=== PATIENT | male | born 1945 | race Caucasian/White ===

== ENCOUNTER → 2020-11-25 | Outpatient (CLI) | payer MEDICARE, OTHER ==
[~2020-11-25] MED LIST: ADVAIR 500-501 EACH INH; DYAZIDE 37.5/251 EA PO; IPRAT-ALBUT 0.5-3 ML INH; LEVAQUIN750 MG PO; MEDROL4 MG PO; PROAIR HFA8.5 GM INH; VOLTAREN EC 5050 MG PO; ZESTRIL30 MG PO; ZOCOR40 MG PO; ZYLOPRIM 100 M100 MG PO
== END ==
LOC: NM 08:10
DX: C34.2 Malignant neoplasm of middle lobe, bronchus or lung (principal); I26.99 Other pulmonary embolism without acute cor pulmonale; E86.0 Dehydration; R60.0 Localized edema; R94.8 Abnormal results of function studies of other organs and systems
CPT/HCPCS: 78306; A9503

== ENCOUNTER → 2020-11-30 | Outpatient (CLI) | payer MEDICARE, OTHER | LOC: CT 14:35 | DX: C34.2 Malignant neoplasm of middle lobe, bronchus or lung (principal); I26.99 Other pulmonary embolism without acute cor pulmonale; E86.0 Dehydration; R60.0 Localized edema; J47.9 Bronchiectasis, uncomplicated | CPT/HCPCS: 71260; Q9965 ==

== ENCOUNTER → 2020-12-21 | Outpatient (CLI) | payer MEDICARE, OTHER | LOC: CT 14:31 | DX: C34.2 Malignant neoplasm of middle lobe, bronchus or lung (principal); I26.99 Other pulmonary embolism without acute cor pulmonale; E86.0 Dehydration; R60.0 Localized edema; M89.9 Disorder of bone, unspecified; G35 Multiple sclerosis | CPT/HCPCS: 36415; 73701; Q9967 ==

== ENCOUNTER → 2021-01-06 | Outpatient (CLI) | payer MEDICARE, OTHER | LOC: MRI 15:13 | PROVIDERS: Family Medicine | DX: R73.9 Hyperglycemia, unspecified (principal); E78.5 Hyperlipidemia, unspecified; I10 Essential (primary) hypertension; C34.2 Malignant neoplasm of middle lobe, bronchus or lung; I26.99 Other pulmonary embolism without acute cor pulmonale; E86.0 Dehydration; R60.0 Localized edema; S83.241A Other tear of medial meniscus, current injury, right knee, initial encounter | CPT/HCPCS: 36415; 73723; 80053; 80061; A9577 ==

== ENCOUNTER → 2021-03-25 | Outpatient (CLI) | payer MEDICARE, OTHER | LOC: CT 14:30 | DX: C34.2 Malignant neoplasm of middle lobe, bronchus or lung (principal); C79.51 Secondary malignant neoplasm of bone; I26.99 Other pulmonary embolism without acute cor pulmonale; E86.0 Dehydration; R60.0 Localized edema | CPT/HCPCS: 71260; Q9967 ==

== ENCOUNTER → 2021-04-15 | Outpatient (CLI) | payer MEDICARE, OTHER | LOC: RT 14:37 | DX: J20.9 Acute bronchitis, unspecified (principal); J42 Unspecified chronic bronchitis; C34.2 Malignant neoplasm of middle lobe, bronchus or lung; Z90.2 Acquired absence of lung [part of] | CPT/HCPCS: 36600; 82803 ==

== ENCOUNTER → 2021-05-26 | Outpatient (CLI) | payer MEDICARE, OTHER ==
[2021-05-26 15:38] LABS: BUN/CREATININE RATIO 11 (0-10)
== END ==
LOC: LAB 14:44
PROVIDERS: Family Medicine
DX: R73.9 Hyperglycemia, unspecified (principal); E78.5 Hyperlipidemia, unspecified; I10 Essential (primary) hypertension; R94.4 Abnormal results of kidney function studies; M10.9 Gout, unspecified
CPT/HCPCS: 36415; 80053; 80061; 83036; 84550

== ENCOUNTER → 2021-07-01 | Outpatient (CLI) | payer MEDICARE, OTHER | LOC: CT 14:21 | DX: C34.2 Malignant neoplasm of middle lobe, bronchus or lung (principal); I26.99 Other pulmonary embolism without acute cor pulmonale; E86.0 Dehydration; R60.0 Localized edema; J47.9 Bronchiectasis, uncomplicated; R91.8 Other nonspecific abnormal finding of lung field | CPT/HCPCS: 71260; Q9967 ==

== ENCOUNTER 2021-08-13 00:17 | Inpatient (IN) | payer MEDICARE, OTHER ==
[~2021-08-13] VITALS: Ht 182.9 cm; Wt 105.7 kg
[~2021-08-13 00:17] MED LIST changes: -PROAIR HFA8.5 GM INH; -ZOCOR40 MG PO
[2021-08-13 01:05] LABS: HEMOGLOBIN 15.1 gm/dl (14.0-17.5); RED BLOOD COUNT 4.72 M/UL (4.20-5.50)
[2021-08-13 01:59] LABS: BUN/CREATININE RATIO 12 (0-10)
[2021-08-13] MEDS ORDERED: METOPROLOL TART25 MG PO (12:38)
[2021-08-13] MEDS ORDERED: IPRAT-ALBUT 0.5-3 ML NEB (12:38)
[2021-08-13] MEDS ORDERED: ELIQUIS5 MG PO (12:39)
[2021-08-13] MEDS ORDERED: TAGRISSO PO (12:40)
[2021-08-13] MEDS ORDERED: SYMBICORT 16010.2 GM INH (12:40)
[2021-08-13] MEDS ORDERED: VITAMIN D250 MCG PO (12:41)
[2021-08-13 16:47] LABS: ACINETOBACTER BAUMANNII Not Detected (Negative); CANDIDA ALBICANS Not Detected (Negative); CANDIDA KRUSEI Not Detected (Negative); CANDIDA TROPICALIS Not Detected (Negative); ENTEROCOCCUS Not Detected (Negative); HAEMOPHILUS INFLUENZAE Not Detected (Negative); KLEBSIELLA OXYTOCA Not Detected (Negative); KLEBSIELLA PNEUMONIAE Not Detected (Negative); KPC-CARBAPENEM-RESISTANCE GENE Not Detected (Negative); PROTEUS Not Detected (Negative); PSEUDOMONAS AERUGINOSA Not Detected (Negative); SERRATIA MARCESANS Not Detected (Negative); STAPHYLOCOCCUS Not Detected (Negative); STAPHYLOCOCCUS AUREUS Not Detected (Negative); STREP AGALACTIAE (GROUP B) Not Detected (Negative); STREP PYOGENES (GROUP A) Not Detected (Negative); STREPTOCOCCUS Not Detected (Negative); mecA (METHICILLIN RESIST GENE Not Detected (Negative); vanA/B (VANCOMYCIN RESIST GENE Not Detected (Negative)
[2021-08-13 18:02] LABS: ESCHERICHIA COLI DETECTED (Negative)
[2021-08-13] MEDS ORDERED: ZOCOR40 MG PO (18:23)
[2021-08-13] MEDS ORDERED: PROAIR HFA8.5 GM INH (18:24)
[2021-08-14 04:11] LABS: WHITE BLOOD COUNT 5.7 K/UL (4.5-11.0)
[2021-08-14 04:26] LABS: HEMOGLOBIN 11.5 gm/dl (14.0-17.5); RED BLOOD COUNT 3.69 M/UL (4.20-5.50)
[2021-08-14 04:45] LABS: BUN/CREATININE RATIO 18 (0-10)
[2021-08-14 09:13] LABS: HBSAG SCREEN Negative (Negative); HEP A AB, IGM Negative (Negative); HEP B CORE AB, IGM Negative (Negative); HEP C VIRUS AB <0.1 (0.0-0.9)
[2021-08-15 02:15] LABS: HEMOGLOBIN 11.9 gm/dl (14.0-17.5); RED BLOOD COUNT 3.78 M/UL (4.20-5.50); WHITE BLOOD COUNT 5.1 K/UL (4.5-11.0)
[2021-08-15 02:47] LABS: BUN/CREATININE RATIO 22 (0-10)
[2021-08-15] MEDS ORDERED: LEVOFLOXACIN500 MG PO (08:29)
[2021-08-15] MEDS ORDERED: MEDROL4 MG PO (08:29)
== END 2021-08-15 10:31 | disposition home or self-care (01) | DRG 177 ==
LOC: ER1 00:17 → CDU 05:25 → PROG CARE 17:06
PROVIDERS: Family Medicine; Internal Medicine; ADMIT Internal Medicine
DX: J15.6 Pneumonia due to other Gram-negative bacteria (principal); J96.21 Acute and chronic respiratory failure with hypoxia; C34.90 Malignant neoplasm of unspecified part of unspecified bronchus or lung; C79.51 Secondary malignant neoplasm of bone; J21.9 Acute bronchiolitis, unspecified; J43.9 Emphysema, unspecified; E66.9 Obesity, unspecified; Z20.822 Contact with and (suspected) exposure to COVID-19; I10 Essential (primary) hypertension; K76.0 Fatty (change of) liver, not elsewhere classified; E87.6 Hypokalemia; R94.5 Abnormal results of liver function studies; R74.01 Elevation of levels of liver transaminase levels; E86.0 Dehydration; M06.9 Rheumatoid arthritis, unspecified; R74.8 Abnormal levels of other serum enzymes; K21.9 Gastro-esophageal reflux disease without esophagitis; Z82.49 Family history of ischemic heart disease and other diseases of the circulatory system; Z90.5 Acquired absence of kidney; Z79.52 Long term (current) use of systemic steroids; Z79.899 Other long term (current) drug therapy; Z87.891 Personal history of nicotine dependence; Z68.31 Body mass index [BMI] 31.0-31.9, adult
CPT/HCPCS: 36415; 36600; 71045; 71260; 76705; 80053; 80074; 80076; 80202; 81001; 82550; 82553; 82607; 82803; 83540; 83550; 83605; 83690; 83735; 83874; 83880; 84100; 84132; 84439; 84443; 84484; 85025; 85027; 85610; 85652; 86140; 87040; 87077; 87150; 87186; 94640; 94664; 94760; 96374; 96375; 99285; C9113; J0692; J2405; J2920; J2930; J3370; J3475; J3480; J7030; J7070; Q9967; U0002

== ENCOUNTER → 2021-10-04 | Outpatient (CLI) | payer MEDICARE, OTHER ==
[~2021-10-04] MED LIST changes: +ELIQUIS5 MG PO; +IPRAT-ALBUT 0.5-3 ML NEB; +LEVOFLOXACIN500 MG PO; +METOPROLOL TART25 MG PO; +PROAIR HFA8.5 GM INH; +SYMBICORT 16010.2 GM INH; +TAGRISSO PO; +VITAMIN D250 MCG PO; +ZOCOR40 MG PO
[2021-10-04 15:33] LABS: BUN/CREATININE RATIO 9 (0-10)
== END ==
LOC: LAB 14:15
PROVIDERS: Family Medicine
DX: M10.9 Gout, unspecified (principal); E78.5 Hyperlipidemia, unspecified; I10 Essential (primary) hypertension
CPT/HCPCS: 36415; 80053; 80061; 84550

== ENCOUNTER → 2022-03-02 | Outpatient (CLI) | payer MEDICARE, OTHER ==
[2022-03-02 13:36] LABS: HEMOGLOBIN 14.2 gm/dl (14.0-17.5); RED BLOOD COUNT 4.78 M/UL (4.20-5.50); WHITE BLOOD COUNT 6.7 K/UL (4.5-11.0)
[2022-03-02 14:00] LABS: BUN/CREATININE RATIO 12 (0-10)
== END ==
LOC: CT 13:05
PROVIDERS: Registered Nurse
DX: C34.2 Malignant neoplasm of middle lobe, bronchus or lung (principal); I26.99 Other pulmonary embolism without acute cor pulmonale; E78.5 Hyperlipidemia, unspecified; I10 Essential (primary) hypertension; R73.9 Hyperglycemia, unspecified; M10.9 Gout, unspecified; E86.0 Dehydration; R60.0 Localized edema
CPT/HCPCS: 36415; 71260; 80053; 80061; 83036; 83615; 84550; 85025; Q9967

== ENCOUNTER → 2022-06-03 | Outpatient (CLI) | payer MEDICARE, OTHER ==
[2022-06-03 14:03] LABS: RED BLOOD COUNT 4.88 M/UL (4.20-5.50)
[2022-06-03 14:26] LABS: BUN/CREATININE RATIO 13 (0-10)
== END ==
LOC: CT 13:37
PROVIDERS: Internal Medicine Hematology & Oncology
DX: C34.2 Malignant neoplasm of middle lobe, bronchus or lung (principal); E86.0 Dehydration; R60.0 Localized edema; I26.99 Other pulmonary embolism without acute cor pulmonale; J47.9 Bronchiectasis, uncomplicated
CPT/HCPCS: 36415; 71260; 80053; 83615; 85025; Q9967